=== PATIENT | female | born 1980 ===

== ENCOUNTER 2017-02-23 17:38 | Emergency (ER) | payer BC ==
[2017-02-23 18:21] VITALS: BMI 24.7
[2017-02-23] MEDS ORDERED: Lactated Ringer's 1,000 ML IV SCH (18:30)
--- NOTE | 2017-02-23 18:32 | OBHP ---
Datetime: 02/23/2017 18:22 IP Adm Impression: , intrauterine IP Chief Complaint Other: vaginal spotting Admit Comment, IP Provider: at 29+weeks came with c/o spotting x 3 time arround 4.55 pm when hermes marixa woke up she wiped and saw spotting..called dr bone told her to go to er.pt has marginal insertio n of cord.no pain or ctxs, lof,+fm obhx primi pmh denies med pnv all nkda psh denies soch denies a/p at 29weeks vaginal spotting/ ctxs/bacterial vaginitis ua npo/ivf cont sylvia afm cont close observation Pelvic Type - PN: Adequate Extremities - PN: Normal Abdomen - PN: Normal Back - PN: Normal Breast - PN: Not Done Lungs - PN: Normal Heart - PN: Normal Thyroid - PN: Not Done Neurologic - PN: Normal HEENT - PN: Normal General - PN: Normal FHR - Baseline A Provider: 140 Contraction Comments Provider: irrg Comments, ACOG Physical Exam: gravid,non tender ext no edema,no calf ten sse yellowish whitish disc, cervix closed,no blood Vital Signs Provider: Reviewed; Within Normal Limits NICHD Variability Prov Fetus A: Moderate 6-25bpm NICHD Accel Fetus A IP Provider: [id number] NICHD Decel Fetus A IP Provider: None Dilatation, Provider: 0 Genitourinary Exam: Normal DTRs - PN: Normal
[2017-02-23 19:11] LABS: RBC URINE 7 /hpf (0-3); URINE BILIRUBIN NEGATIVE (NEGATIVE); URINE BLOOD 1+ (NEGATIVE); URINE COLOR Yellow (YELLOW); URINE GLUCOSE (UA) NORMAL (Normal); URINE KETONE NEGATIVE (NEGATIVE); URINE LEUKOCYTE ESTERASE 3+ Leu/uL (Negative); URINE PROTEIN NEGATIVE (NEGATIVE); URINE UROBILINOGEN NORMAL mg/dL (0.2-1.0)
[2017-02-23 19:14] LABS: URINE BACTERIA FEW (<OCC); WBC URINE 30 /hpf (0-5)
--- NOTE | 2017-02-23 19:48 | OBDCSUM ---
Datetime: 02/23/2017 19:46 Discharged to, Provider: Home Follow up at, Provider: 1-2days Disch Instr Diet: Regular Follow up in weeks, Provider: dr bone Disch Activity Restrictions: No sexual activity; Nothing in vagina - [place], tampons, douche Discharge Comment, Provider: no sex macrobid x 7days po hyration f/u with pmd in 1-2days Discharge Diagnosis Prov Other: 29weeks nst uti pretm ctxs
--- NOTE | 2017-02-23 19:48 | OBHP ---
Datetime: 02/23/2017 19:43 Admit Comment, IP Provider: pt was seen at bed side. feels ok,no pain or vb. ua 3+le pt was given ivf and terb x 1 plan dc home no sex macrobid x 7days po hyration f/u with pmd in 1-2days FHR - Baseline A Provider: 140 Contraction Comments Provider: none Vital Signs Provider: Reviewed; Within Normal Limits NICHD Variability Prov Fetus A: Moderate 6-25bpm
== END 2017-02-23 19:46 | disposition home or self-care (01) ==
LOC: C.EROB 17:38
DX: O23.43 Unspecified infection of urinary tract in pregnancy, third trimester (principal); O47.03 False labor before 37 completed weeks of gestation, third trimester; O23.593 Infection of other part of genital tract in pregnancy, third trimester; Z3A.29 29 weeks gestation of pregnancy
CPT/HCPCS: 81001; 99283; J3105; J7120